=== PATIENT | male | born 1965 | race Caucasian/White ===

== ENCOUNTER 2021-11-23 16:30 | Outpatient (RCR) | payer BC, SELFPAY ==
[2021-09-14 08:24] LABS: Glucose Point of Care 189 mg/dl (65-105)
[2021-09-18 08:13] LABS: Glucose Point of Care 205 mg/dl (65-105)
[2021-09-20 08:11] LABS: Glucose Point of Care 168 mg/dl (65-105)
[2021-09-21 08:21] LABS: Glucose Point of Care 203 mg/dl (65-105)
[2021-10-23 08:05] LABS: Glucose Point of Care 156 mg/dl (65-105)
== END 2021-11-23 16:57 | disposition home or self-care (01) ==
LOC: ANHCPREHAB 16:30
PROVIDERS: PCP Family Medicine Adolescent Medicine
DX: Z95.5 Presence of coronary angioplasty implant and graft (principal)
CPT/HCPCS: 93798